=== PATIENT | female | born 1965 | race Caucasian/White ===

== ENCOUNTER 2018-06-13 05:28 | Day surgery (SDC) | payer BC, OTHER ==
[~2018-06-13] VITALS: Ht 167.6 cm; Wt 76.2 kg
--- NOTE | ~2018-06-13 | EKG ---
[address] [address] ELECTROCARDIOGRAM REPORT Name: ITZELJUSTINAUSTEN WALKER Room #: 150-9 [facility].#: [id number] Admission: 06/13/18 Attend Phys: Ortiz Duarte MD Discharge: Date of : 69 Report #: [id number] THIS REPORT FOR: //name// [facility] Test Date: 2018-06-13 Test Time: 09:44:15 Pat Name: JUSTIN ROBBINS Department: Room: 150 9 Gender: F Police Chief Deputy: RONALD : 1965 Requested By: Ortiz Duarte Order Number: [id number] MD: Devin Liu Measurements Intervals [employer] Rate: 76 P: 66 SC: 140 QRS: 8 QRSD: 93 T: 44 QT: 401 QTc: 451 Interpretive Statements Sinus rhythm No previous ECG available for comparison Electronically Signed On 06-13-2018 13:27:29 [employer] by Devin Liu [email or web address] <ELECTRONICALLY SIGNED> By: Devin Liu MD 06/13/18 1327 0944 0944 Devin Liu MD /ANNETTE
--- NOTE | ~2018-06-13 | O ---
[address] [address] OPERATIVE REPORT Name: JUSTIN ROBBINS Room #: 150-9 [facility] M.R.#: [id number] Admission: 06/13/18 Attend Phys: Ortiz Duarte MD Discharge: Date of : 69 Report #: [id number] THIS REPORT FOR: //name// CC: Ortiz Proctor DATE OF SERVICE: 06/13/2018 SERVICE: Orthopedics. FACILITY: [facility]. SURGEON: Ortiz Duarte MD SKIN DRIER: Chula Wood NP PREOPERATIVE DIAGNOSES: 1. Right hip pain. 2. Right hip impingement. POSTOPERATIVE DIAGNOSES: 1. Right hip pain. 2. Right hip impingement. 3. Right hip labral tear. PROCEDURES: 1. Right hip arthroscopic labral repair. 2. Right hip arthroscopic extraarticular subspine acetabuloplasty. COMPLICATIONS: None. DRAINS: None. SPECIMENS: None. ANESTHESIA: General with regional. FINDINGS: 1. [place] CinchLock suture anchor x 2 with labral repair. 2. Partial thickness labral tear with chondral labral fraying treated with debridement at the chondral labral junction and labral repair. 3. No significant Cam impingement. HISTORY AND INDICATIONS: The patient is a 53-year-old female with a many year history of persistent progressive right hip pain. She tried extensive conservative measures including seeking multiple specialty opinions, rest, [address] [address] OPERATIVE REPORT Name: JUSTIN ROBBINS Room #: 150-9 [facility] M.R.#: [id number] Admission: 06/13/18 Attend Phys: Ortiz Duarte MD Discharge: Date of : 69 Report #: [id number] activity modifications, injections, physical therapy, oral medications. She recently saw a physical therapist who suspected intra-articular hip pathology. She had diagnostic intra-articular injection, which provided excellent relief, but unfortunately it was only temporary. She had some partial response to physical therapy, but continued to have pain. We ultimately decided to move forward with surgical management after she had failed all conservative measures. Risks, benefits, alternatives, and indication for surgery were discussed with her in detail. Risks include but not limited to pain, bleeding, infection, injury to nerve or blood vessels, persistent pain despite surgical intervention, failure of any repairs, reconstruction, progression of any preexisting chondral injury, stiffness, need for further surgery as well as complications related to anesthesia such as stroke, heart attack, pulmonary complications, thromboembolic disease and . Despite these risks she wished to proceed. Preoperative imaging was obtained and showed a prominent anterior inferior iliac spine on the false profile view, which is responsible for the small crossover sign noted on the pelvis x-ray. She had a normal alpha angle, she had no evidence of arthritis, and there were some subtle changes at the chondral labral junction on the MRI suggestive of possible labral pathology. PROCEDURE IN DETAIL: After her right lower extremity was correctly identified in the preoperative holding area as the operative site, the patient underwent placement of single shot regional nerve block by Anesthesia. She was then taken to the operating room where general anesthesia was induced without complication. She was padded appropriately. Prophylactic antibiotics were administered at appropriate time. Right leg femoral head and neck junction was mapped out under fluoroscopy. There was no significant Cam deformity. Right leg was then prepped and draped in a standard sterile fashion. Time-out procedure was performed. Traction was applied to right lower extremity. Standard anterolateral viewing portal as well as anterior medial working portal was established in a typical fashion. There was significant synovitis as well as erythema and inflammation within the capsule. Transverse capsulotomy was performed. There was some bruising of the labrum on the dorsal side adjacent to the subspine lesion, which was identified on the preoperative x-rays. The labrum itself had a subtle crack at the chondral labral junction and then as the case proceeded and better visualization was achieved of the frayed tissue at that chondral labral junction consistent with a symptomatic labral tear. The capsule was reflected off the dorsal side of the labrum allowing access to the subspine region, which is the extraarticular portion of the anterior column of the acetabulum. The anterior inferior iliac spine was exposed and then the bur was used to perform extraarticular subspine recession limiting the extraarticular component of her impingement, and then a bur was used to abrade the acetabular rim to generate a bleeding surface for labral healing. First of 2 [place] CinchLock suture anchors was placed in a typical fashion utilizing a cerclage suture providing good compression against the acetabular rim, and then [address] [address] OPERATIVE REPORT Name: JUSTIN ROBBINS DENISE Room #: 150-9 [facility] M.R.#: [id number] Admission: 06/13/18 Attend Phys: Ortiz Duarte MD Discharge: Date of : 69 Report #: [id number] the labrum was probed and found to be stable. There was no other significant pathology in the intraarticular space, so traction was let down. The peripheral compartment was then carefully evaluated with hip flexed to ensure that there was no significant Cam deformity to confirm the intraoperative x-ray mapping. At this point then the transverse capsulotomy was closed with a total of three #2 Vicryl sutures utilizing 1 simple and 2 [id number] suture configurations. At this point, the instruments were removed. The portal sites were closed. Sterile dressing was applied. The patient was awakened from anesthesia and taken to recovery room in stable condition. There were no complications. All counts were recorded as correct. By: [id number] Ortiz Duarte MD /nt
[~2018-06-13 05:28] MED LIST: NORETHIND-ETH1 EACH PO; TYLENOL325 MG PO
[2018-06-13 10:00] VITALS: BP 124/86
[2018-06-13 14:36] VITALS: BP 124/86
== END 2018-06-13 15:10 | disposition home or self-care (01) ==
LOC: OR 05:28 → TBA 05:29 → OR 10:38
DX: S73.101A Unspecified sprain of right hip, initial encounter (principal); M25.851 Other specified joint disorders, right hip; Z98.890 Other specified postprocedural states; Z98.51 Tubal ligation status; Z88.2 Allergy status to sulfonamides; Z79.899 Other long term (current) drug therapy; Z95.2 Presence of prosthetic heart valve; X58.XXXA Exposure to other specified factors, initial encounter; Y93.89 Activity, other specified; Y92.89 Other specified places as the place of occurrence of the external cause; Y99.8 Other external cause status
CPT/HCPCS: 50010; 50101; 50386; 51538; 52304; 52313; 55430; 56524; 56527; 57092; 57103; 62110; 62900; 70005

== ENCOUNTER 2019-06-13 06:45 | Day surgery (SDC) | payer BC, OTHER ==
[~2019-06-13] VITALS: Ht 167.6 cm; Wt 74.8 kg
[2019-06-13 09:36] VITALS: BP 102/73
--- NOTE | 2019-06-14 07:04 | O ---
[address] [address] OPERATIVE REPORT Name: ITZELJUSTIN DENISE Room #: DEP [facility] M.R.#: [id number] Admission: 06/13/19 Attend Phys: Ortiz Duarte MD Discharge: 06/13/19 Date of : 69 Report #: [id number] THIS REPORT FOR: //name// CC: Ortiz Conrad Shivathirthan DATE OF SERVICE: 06/13/2019 SERVICE: Orthopedics. FACILITY: [facility]. SURGEON: Ortiz Duarte MD. ICE CREAM MAN: Chula Wood NP. INDICATION FOR ICE CREAM MAN: Extremity positioning, suture management, arthroscope management, and assistance with repair. PREOPERATIVE DIAGNOSES: 1. Left hip pain. 2. Left hip femoroacetabular impingement. 3. Left hip labral tear. 4. Left hip trochanteric bursitis POSTOPERATIVE DIAGNOSES: 1. Left hip pain. 2. Left hip femoroacetabular impingement. 3. Left hip labral tear. 4. Left hip trochanteric bursitis. 5. 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 PROCEDURES: 1. Left hip arthroscopic labral repair. 2. Left hip arthroscopic Cam osteochondroplasty. 3. Left hip arthroscopic extraarticular subspine acetabuloplasty. 4. Left hip arthroscopic trochanteric bursectomy. COMPLICATIONS: None. DRAINS: None. SPECIMENS: None. ANESTHESIA: General with regional. [address] [address] OPERATIVE REPORT Name: JUSTIN ROBBINS Room #: DEP [facility] M.R.#: [id number] Admission: 06/13/19 Attend Phys: Ortiz Duarte MD Discharge: 06/13/19 Date of : 69 Report #: [id number] FINDINGS: 1. A labral tear with chondral wave sign anterolaterally, treated with [place] CinchLock suture anchor x 2. 2. Chondromalacia, grade 3, at the anterolateral aspect of the acetabular rim at the chondral labral junction, treated with chondroplasty. 3. Small cam deformity with the maximum alpha angle of about 54 degrees, treated with cam osteoplasty. 4. Trochanteric bursectomy performed HISTORY: The patient is a 54-year-old female with a history of bilateral hip pain and EDUARDO. She had a successful right hip EDUARDO surgery 1 year ago. She throughout her recovery was doing well, but she was having left hip pain that was progressing and been present for greater than 6 months and had failed conservative treatment during this time including rest, activity modifications, physical therapy modalities, etc. She had preoperative imaging, which was consistent with a labral tear as well as a Tonnis grade of 0 on her x-rays. No sign of arthritis and an increased alpha angle of approximately 54 degrees. She had a small crossover sign attributable to a prominent anterior inferior iliac spine and was indicated for a surgical treatment. She elected to undergo this procedure after the risks, benefits, alternatives, and indications of surgery were discussed with her in detail. Risks include, but not limited to, pain, bleeding, infection, injury to nerves or blood vessels, persistent pain despite surgical intervention, failure of any repairs, progression of any preexisting chondral injury, stiffness, need for further surgery, as well as complication related to anesthesia such as stroke, heart attack, pulmonary complications, thromboembolic disease, and . Despite these risks, she wished to proceed. PROCEDURE IN DETAIL: After the left lower extremity was correctly identified in preoperative holding as operative extremity, the patient underwent placement of single shot regional nerve block. She was then taken to the operating room, where general anesthesia was induced without complication. She was padded appropriately. Prophylactic antibiotics were administered at appropriate time. Femoral head and neck junction was mapped out under a live fluoroscopy to assess the extent of the cam deformity and this was a small cam deformity, there was about a 54-55 degree alpha angle. Left hip was then prepped and draped in standard sterile fashion. Timeout procedure was performed. Traction was applied to the left lower extremity. Total traction time was approximately 30 minutes. Standard anterolateral viewing portal was established followed by mid anterior working portal. There was noted to be a capsular injection, erythema, and some synovitis. This will be the indication for CPM usage postoperatively to minimize the adhesions and scarring, as this these can be a reason for reoperation in this patient population. Transverse capsulotomy was performed. Diagnostic arthroscopy revealed the above findings. Capsule was reflected off the dorsal side of the labrum after the [facility] [address] [place] [address] OPERATIVE REPORT Name: JUSTIN ROBBINS Room #: DEP [facility] Gail#: [id number] Admission: 06/13/19 Attend Phys: Ortiz Duarte MD Discharge: 06/13/19 Date of : 69 Report #: [id number] labrum was found to be torn and unstable with a chondral wave sign anterolaterally. There was a small focal subspine impingement lesion. So, the bur was used to perform an extraarticular subspine recession and then the bur was used to gently abrade the acetabular rim to create a bleeding surface for labral refixation. A [place] CinchLock suture anchor x 2 was then used to perform a cerclage suture around the labrum, providing good compression and an anatomic confucianism of the labral position. This led to a resolution of the chondral wave sign. There was some unstable cartilage then that required a chondroplasty, at this point, which I completed with the shaver. Traction was let down. The hip was flexed up. Attention was turned towards the peripheral compartment, where the cam deformity was visualized and then the bur was used to perform a small Cam osteochondroplasty. I removed the instruments, brought C-arm in, was happy with the appearance of the cam osteoplasty, then placed the instruments back in the hip, completed the bony lavage, and then to closed the transverse capsulotomy with a total of three #2 Vicryl sutures. At this point, scope was oriented to the peritrochanteric compartment and a trochanteric bursectomy was performed. There was no evidence of a significant high-grade abductor tendon tear. After this was completed, instruments were removed. Portal sites were closed. Sterile dressing was applied. The patient was awakened from anesthesia and taken to recovery room in stable condition. No complications. All counts were recorded as correct. <ELECTRONICALLY SIGNED> By: Ortiz Duarte MD 06/14/19 0704 [id number] Ortiz Duarte MD /nt
== END 2019-06-13 12:15 | disposition home or self-care (01) ==
LOC: OR 06:45 → TBA 06:45 → OR 07:50
DX: M25.552 Pain in left hip (principal); S73.102A Unspecified sprain of left hip, initial encounter; M25.852 Other specified joint disorders, left hip; M70.62 Trochanteric bursitis, left hip; M94.252 Chondromalacia, left hip; Z98.890 Other specified postprocedural states; Z98.51 Tubal ligation status; Z79.899 Other long term (current) drug therapy; Z88.2 Allergy status to sulfonamides; X58.XXXA Exposure to other specified factors, initial encounter; Y93.89 Activity, other specified; Y92.89 Other specified places as the place of occurrence of the external cause; Y99.8 Other external cause status
CPT/HCPCS: 50010; 50101; 50386; 51320; 51538; 52001; 52282; 52304; 52313; 55430; 56524; 56527; 57092; 57103; 62110; 62900; 70005